=== PATIENT | male | born 1945 | race Caucasian/White ===

== ENCOUNTER 2017-10-20 13:38 | Observation (INO) | payer OTHER ==
[~2017-10-20] VITALS: Ht 172.7 cm; Wt 94.8 kg
[~2017-10-20 13:38] MED LIST: ASPIR 8181 M1 PO; CRESTOR40 MG PO; DIOVAN HCT 31 TABLE1 PO; NEXIUM20 MG PO; PROMETHAZINE HC25 M1
[2017-10-20 14:37] LABS: HEMATOCRIT 39.5 % (38.0-50.0); HEMOGLOBIN 13.8 G/DL (12.5-16.6); MCH 31.1 PG (29.0-34.0); MCHC 34.9 G/DL (30.0-36.0); PLATELET COUNT 211 K/uL (156-360); RBC DIS.WIDTH-CV 12.8 % (11.8-14.6); RBC DIS.WIDTH-SD 41.6 % (39-53); RED BLOOD COUNT 4.44 M/uL (4.00-5.50); WHITE BLOOD COUNT 7.6 K/uL (4.1-10.2)
[2017-10-20 14:51] LABS: CHLORIDE 104 mEq/L (99-109)
[2017-10-20 14:52] LABS: POTASSIUM 3.6 mEq/L (3.7-5.4); SODIUM 138 mEq/L (136-147)
[2017-10-20 14:53] LABS: GLUCOSE 110 mg/dL (70-99)
[2017-10-20 14:57] LABS: CREATININE 0.8 mg/dL (0.6-1.3); GFR ESTIMATE (CALCULATED) > 59 mL/min/ (58.99-99999)
[2017-10-20 14:58] LABS: UREA NITROGEN (BUN) 16 mg/dL (9-23)
[2017-10-20 15:03] LABS: TROP-I INTERPRETATION NEGATIVE; TROPONIN-I < 0.01 ng/mL (0.0-0.30)
[2017-10-20 18:02] LABS: HDL CHOLESTEROL 40 MG/DL (Desirable>=40); LDL CHOLESTEROL 40 mg/dL (Desirable<100); NON-HDL CHOLESTEROL 64 mg/dL (Desirable<160); TOTAL CHOLESTEROL 104 mg/dL (Desirable<200); TRIGLYCERIDES 122 MG/DL (Normal: <150)
[2017-10-20] MEDS ORDERED: ONE DAILY1 EAC3 PO (18:13)
[2017-10-20] MEDS ORDERED: HYZAAR 100-21 TABLET PO (18:13)
[2017-10-20] MEDS ORDERED: FISH OIL 1,0001 EAC7 PO (18:14)
[2017-10-20] MEDS ORDERED: RESTASIS MULTI5.5 ML BOTH EYES (18:14)
[2017-10-20] MEDS ORDERED: SALINE NASAL SP45 ML BOTH NARES (18:15)
[2017-10-20 20:01] VITALS: BP 128/67
[2017-10-20 20:44] LABS: TROP-I INTERPRETATION NEGATIVE; TROPONIN-I < 0.01 ng/mL (0.0-0.30)
[2017-10-21 00:17] VITALS: BP 127/74
[2017-10-21 03:37] LABS: TROP-I INTERPRETATION NEGATIVE; TROPONIN-I < 0.01 ng/mL (0.0-0.30)
[2017-10-21 04:12] VITALS: BP 109/59
[2017-10-21 07:29] VITALS: BP 128/70
== END 2017-10-21 12:13 | disposition home or self-care (01) ==
LOC: EME 13:38 → EDOF 16:24 → 4SOUTH 16:24 → EDOF 16:24 → ENRESERV 16:42 → 4SOUTH 19:48
PROVIDERS: Hospitalist
DX: R07.9 Chest pain, unspecified (principal); M79.602 Pain in left arm; I25.10 Atherosclerotic heart disease of native coronary artery without angina pectoris; Z95.5 Presence of coronary angioplasty implant and graft; I10 Essential (primary) hypertension; E78.5 Hyperlipidemia, unspecified; I44.7 Left bundle-branch block, unspecified; Z82.49 Family history of ischemic heart disease and other diseases of the circulatory system; Z79.82 Long term (current) use of aspirin; Z88.0 Allergy status to penicillin
CPT/HCPCS: 71046; 80048; 80061; 84484; 85027; 93005; 99281; 99285; G0378; J1650

== ENCOUNTER 2017-11-03 08:06 | Day surgery (SDC) | payer OTHER ==
[~2017-11-03] VITALS: Ht 174 cm; Wt 92.5 kg
[~2017-11-03 08:06] MED LIST changes: +FISH OIL 1,0001 EAC7 PO; +HYZAAR 100-21 TABLET PO; +ONE DAILY1 EAC3 PO; +PROBIOTIC1 EAC1 PO; +REFRESH PLUS1 EACH BOTH EYES; +RESTASIS MULTI5.5 ML BOTH EYES; +SALINE NASAL SP45 ML BOTH NARES
== END 2017-11-03 14:21 | disposition home or self-care (01) ==
LOC: CATH 08:06
DX: I25.10 Atherosclerotic heart disease of native coronary artery without angina pectoris (principal); I10 Essential (primary) hypertension; Z79.82 Long term (current) use of aspirin; Z95.5 Presence of coronary angioplasty implant and graft; Z88.0 Allergy status to penicillin
CPT/HCPCS: C1769; C1887; J1644; J2250; J3010